=== PATIENT | female | born 1995 | race Two or more races ===

== ENCOUNTER 2016-09-23 19:32 | Emergency (ER) | payer OTHER ==
[~2016-09-23 19:32] MED LIST: NORCO 5-325 TA1 EAC1 ORAL; OCUFLOX5 ML LEFT EYE; ZOFRAN ODT4 MG ORAL
== END 2016-09-23 20:16 | disposition left against medical advice (07) ==
LOC: EMR 20:16
DX: H92.09 Otalgia, unspecified ear (principal); Z53.21 Procedure and treatment not carried out due to patient leaving prior to being seen by health care provider

== ENCOUNTER 2016-10-06 22:42 | Emergency (ER) | payer OTHER ==
[~2016-10-06] VITALS: Ht 160 cm; Wt 86.2 kg
[2016-10-06] MEDS ORDERED: NKM (22:58)
[2016-10-07 01:45] VITALS: BP 122/83
[2016-10-07] MEDS ORDERED: NORCO 5-325 TA1 EAC1 ORAL (02:00)
[2016-10-07] MEDS ORDERED: IBUPROFEN600 MG ORAL (02:00)
--- NOTE | 2016-10-07 12:06 | Diagnostic Imaging Report ---
Clinical Indication:PAIN Technique: 3 views of the right wrist Comparison: None Findings: No acute fractures or dislocations. Sliver of increased density adjacent to the triquetrum on the AP view represents a screen artifact. Joint spaces are preserved Impression: Negative This represents a minor discrepancy from the ER preliminary report. Discrepant findings provided to the emergency room via PACS system and phoned to Dr. Max at the time of interpretation.
--- NOTE | 2016-10-10 13:25 | Emergency Room Report ---
History of Present Illness General Chief Complaint: Multiple Trauma/Fall Source: Patient Present Illness HPI Patient is a 21-year-old female who presented after a fall. Patient reportedly slipped and fell at work. The patient had complaints of pain to her left hand as well as to her left knee. Patient denied loss of consciousness. She reported having been able to move her arm normally. She denied any numbness or weakness. She denied any head injury or neck pain. Allergies: Coded Allergies: No Known Allergies (Unverified , 04/12/16) Patient History Past Medical History: see triage record Last Menstrual Period: Sep Reviewed Nursing Documentation: PMH: Agreed, PSxH: Agreed Nursing Documentation-PMH Past Medical History: No Stated History Review of Systems All Other Systems: negative except mentioned in HPI Physical Exam Vital Signs Date Time Temp Pulse Resp B/P Pulse Ox O2 Delivery O2 Flow Rate FiO2 10/06/16 22:54 97.9 96 18 122/83 100 Room Air General Appearance: well appearing, no apparent distress, alert, GCS 15 Head: normocephalic, atraumatic ENT: hearing grossly normal, normal voice Neck: full range of motion, supple Respiratory: no respiratory distress, speaking full sentences Gastrointestinal: normal inspection, normal bowel sounds, non tender, soft Musculoskeletal: no calf tenderness, other - soft tissue swelling to kneecap, hand Neurologic: normal inspection, alert, oriented x3, responsive, roll tension tester III-XII nml as tested, motor strength/tone normal, normal gait Psychiatric: mood/affect normal Skin: no rash Medical Decision Making Diagnostic Impression: Primary Impression: Wrist fracture, right Additional Impression: Knee contusion ER Course Patient presented for fall. Differential diagnosis included was not limited to the wrist dislocation, sprain, fracture among others. X-ray imaging of the right hand interpreted by in 3 view showed a small avulsion of the right wrist. Is unclear with a fragment has originated. Patient was advised was a preliminary x-ray reading and should be contacted if there was any significant difference. Patient was put into a splint.The patient is advised to follow up with workers comp physician in 2-3 days. Patient is advised to return if any worsening condition or if any changes in status that are concerning. Last Vital Signs Date Time Temp Pulse Resp B/P Pulse Ox O2 Delivery O2 Flow Rate FiO2 10/07/16 01:45 97.9 75 18 122/83 100 Room Air Status: improved Disposition: HOME, SELF-CARE Condition: Stable Scripts Ibuprofen* (MOTRIN*) 600 Mg Tablet 600 MG ORAL Q8H Y for For Pain, #30 TAB 0 Refills Prov: Fitz Berger 10/07/16 Hydrocodone Bit/Acetaminophen 5-325* (NORCO 5-325 TABLET*) 1 Each Tablet 1 TAB ORAL Q8HR Y for For Pain, #10 TAB Prov: Fitz Berger 10/07/16 Patient Instructions: Wrist Fracture Fitz Berger Oct 10, 2016 13:25
== END 2016-10-07 01:45 | disposition home or self-care (01) ==
LOC: EMR 23:55
DX: S62.102A Fracture of unspecified carpal bone, left wrist, initial encounter for closed fracture (principal); W01.0XXA Fall on same level from slipping, tripping and stumbling without subsequent striking against object, initial encounter; Y92.89 Other specified places as the place of occurrence of the external cause; Y99.0 Civilian activity done for income or pay
CPT/HCPCS: 99283

== ENCOUNTER 2019-01-07 17:47 | Emergency (ER) | payer MEDICAID, OTHER ==
[~2019-01-07] VITALS: Ht 160 cm; Wt 77.1 kg
[~2019-01-07 17:47] MED LIST changes: +IBUPROFEN600 MG ORAL; +NKM
[2019-01-07 18:06] VITALS: BP 130/82
[2019-01-07] MEDS ORDERED: Ketorolac 60mg Inj IM ONE (18:15)
[2019-01-07 18:20] LABS: APPEARANCE,URINE CLEAR; BILIRUBIN, URINE NEGATIVE (NEGATIVE); GLUCOSE, URINE (UA) NEGATIVE (NEGATIVE); KETONES,URINE 1+ (NEGATIVE); LEUKOCYTE ESTERASE ,URINE 1+ (NEGATIVE); NITRITE,URINE NEGATIVE (NEGATIVE); PH,URINE 7 (4.5-8.0); PROTEIN,URINE NEGATIVE (NEGATIVE); UROBILINOGEN,URINE 1 MG/DL (0.0-1.0)
[2019-01-07 18:22] LABS: COLOR,URINE YELLOW
--- NOTE | 2019-01-07 18:48 | Emergency Room Report ---
History of Present Illness General Chief Complaint: Lower Back Pain or Injury Source: Patient Present Illness HPI 23-year-old female with history of chronic low back pain as previously to have ovarian cyst here complaining of a flareup of her back. Denies any recent injury or fall. She has been taking Flexeril and ibuprofen with minimal relief. Denies urinary complaints, dysuria, hematuria. Denies his physical activity and lifting heavy objects. Patient is rating the pain 10 out of 10 without radiation, denying tingling or numbness. denies Chest pain, S OB, and all other associated symptoms. denies saddle parasthesia, urinary/bowel incontinence. Allergies: Coded Allergies: No Known Allergies (Unverified , 04/12/16) Patient History Past Medical History: see triage record Past Surgical History: unable to obtain Pertinent Family History: none Last Menstrual Period: 01/02/19 Now: No Immunizations: UTD Reviewed Nursing Documentation: PMH: Agreed; PSxH: Agreed Nursing Documentation-PMH Past Medical History: No History, Except For Review of Systems All Other Systems: negative except mentioned in HPI Physical Exam Vital Signs Date Time Temp Pulse Resp B/P (MAP) Pulse Ox O2 Delivery O2 Flow Rate FiO2 01/07/19 17:50 98.4 76 20 98 Room Air 01/07/19 18:06 130/82 Sp02 EP Interpretation: reviewed, normal General Appearance: normal inspection, well appearing, no apparent distress, alert Head: normocephalic, atraumatic Eyes: bilateral eye normal inspection, bilateral eye PERRL ENT: normal ENT inspection, normal pharynx Neck: normal inspection, full range of motion, supple, thyroid normal Respiratory: normal inspection, lungs clear, no rhonchi, no retraction, no wheezing Cardiovascular #1: normal inspection, normal peripheral pulses, regular rate, rhythm, no edema, no murmur Gastrointestinal: normal inspection, soft Genitourinary: no CVA tenderness Musculoskeletal: digits/nails normal, gait/station normal, normal range of motion, non-tender, no calf tenderness, pelvis stable Neurologic: normal inspection, alert, oriented x3, responsive, 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 Berger Diagnostic Impression: Primary Impression: Back spasm Additional Impression: Chronic lumbar pain ER Course 23-year-old female with history of chronic low back pain as previously to have ovarian cyst here complaining of a flareup of her back. Denies any recent injury or fall. She has been taking Flexeril and ibuprofen with minimal relief. Denies urinary complaints, dysuria, hematuria. Denies his physical activity and lifting heavy objects. Patient is rating the pain 10 out of 10 without radiation, denying tingling or numbness. denies Chest pain, S OB, and all other associated symptoms.denies saddle parasthesia, urinary bowel incontinence. Ddx considered but are not limited to: lumbar strain, sprain, fx, cauda equina Vital signs: are WNL, pt. is afebrile H&PE are most consistent with: chronic lumbar pain ORDERS: UA ,urine preg, toradol, naproxen, robaxin ED INTERVENTIONS: toradol 60mg IM. DISCHARGE: At this time pt. is stable for d/c to home. Will provide printed patient care instructions, and any necessary prescriptions. Care plan and follow up instructions have been discussed with the patient prior to discharge. f/o with pcp for referral to physical therapy and back MRI. no Xray needed as not an acute pain. possible cyst neg urine preg, negative UA. pt on her menses Last Vital Signs Date Time Temp Pulse Resp B/P (MAP) Pulse Ox O2 Delivery O2 Flow Rate FiO2 01/07/19 18:06 98.4 76 20 130/82 98 Room Air Disposition: HOME, SELF-CARE Condition: Stable Scripts Methocarbamol* (ROBAXIN*) 500 Mg Tablet 500 MG PO TID, #15 TAB 0 Refills Prov: Beatriz Carl 01/07/19 Naproxen* (NAPROXEN*) 500 Mg Tablet 500 MG ORAL TWICE A DAY, #30 TAB Prov: Beatriz Carl 01/07/19 Patient Instructions: Lumbosacral Strain Additional Instructions: have primary Doctor order back MRI for possible cysts compressing on your back muscles physical therapy recommended take medication as directed do not take Flexeril as it makes you drowsy take Robaxin instead Beatriz Carl January 07, 2019 18:48
[2019-01-07] MEDS ORDERED: ROBAXIN500 MG PO (18:49)
[2019-01-07] MEDS ORDERED: NAPROXEN500 M2 ORAL (18:49)
[2019-01-07 18:54] VITALS: BP 130/82
== END 2019-01-07 18:54 | disposition home or self-care (01) ==
LOC: EMR 18:23
DX: M62.830 Muscle spasm of back (principal); M54.5 Low back pain
CPT/HCPCS: 81001; 81025; 87086; 96372; 99283